=== PATIENT | female | born 1970 | race Caucasian/White ===

== ENCOUNTER 2017-11-13 17:48 | Inpatient (IN) | payer MEDICAID ==
[~2017-11-13] VITALS: Ht 162.6 cm; Wt 52.2 kg
[2017-11-13] MEDS ORDERED: acetaminophen 325mg tablet PO ONE (18:05)
[2017-11-13 18:42] LABS: BASOPHILS % (AUTO) 0.1 % (0-1); EOSINOPHILS # (AUTO) 0.4 X10'3 (0-0.9); HEMATOCRIT 36.6 % (35.0-45.0); HEMOGLOBIN 12.5 g/dl (12.0-16.0); LYMPHOCYTES # (AUTO) 0.8 X10'3 (1.1-4.8); LYMPHOCYTES % (AUTO) 6.8 % (21-51); MEAN CORPUSCULAR HEMOGLOBIN 29.3 PG (27.0-31.0); MEAN CORPUSCULAR HGB CONC 34.3 % (33.0-36.5); MEAN CORPUSCULAR VOLUME 85.6 FL (78-98); MEAN PLATELET VOLUME 7.5 FL (7.4-10.4); MONOCYTES % (AUTO) 0.2 % (2-12); NEUTROPHILS # (AUTO) 11.2 X10'3 (1.8-7.7); NEUTROPHILS % (AUTO) 89.9 % (42-75); PLATELET COUNT 326 X10'3 (140-440); RED BLOOD COUNT 4.28 X10'6 (4.20-5.60); RED CELL DISTRIBUTION WIDTH 14.3 % (11.5-14.5); WHITE BLOOD COUNT 12.5 X10'3 (4.5-11.0)
[2017-11-13 18:46] LABS: INR 0.9 INR; PARTIAL THROMBOPLASTIN TIME 25 SECONDS (22-32); PROTHROMBIN TIME 9.8 SECONDS (9.0-12.0)
[2017-11-13 20:43] LABS: COLOR,URINE YELLOW (Yellow); GLUCOSE, URINE NEGATIVE (Neg); KETONES,URINE NEGATIVE (Neg); LEUKOCYTE ESTERASE ,URINE NEGATIVE (Neg); NITRITES, URINE NEGATIVE (Neg); OCCULT BLOOD,URINE LARGE (Neg); PH,URINE 5.5 (4.8-8.0); PROTEIN,URINE TRACE mg/dl (Neg)
[2017-11-13 20:51] LABS: BACTERIA,URINE FEW /HPF (Neg); CLARITY,URINE SLIGHTLY CLOUDY (Clear); MUCUS STRANDS MODERATE /LPF (Neg); SQUAMOUS EPITHELIAL CELL,UR FEW /LPF (FEW); UA COLLECTION TYPE CLN CATCH MIDSTREAM; WBC,URINE NONE SEEN /HPF (0-4)
[2017-11-13] MEDS ORDERED: temazepam 15mg capsule PO PRN (21:00)
[2017-11-13 21:13] LABS: D-DIMER 1.95 MG/L FEU (0-0.50)
[2017-11-13 21:55] LABS: ALANINE AMINOTRANSFERASE 188 U/L (12-78); ALBUMIN 2.3 G/DL (3.4-5.0); ALBUMIN/GLOBULIN RATIO 0.6 (1.1-1.5); ALKALINE PHOSPHATASE 62 IU/L (46-116); ANION GAP 8 (8-16); ASPARTATE AMINO TRANSFERASE 219 U/L (10-37); BILIRUBIN,TOTAL 0.3 MG/DL (0.1-1.0); BLOOD UREA NITROGEN 20 MG/DL (7-18); CALCIUM 7.6 MG/DL (8.5-10.1); CHLORIDE 98 MMOL/L (99-107); GLUCOSE 132 MG/DL (70-104); SODIUM 133 MMOL/L (135-145); TOTAL CARBON DIOXIDE 27.4 MMOL/L (24-32); TOTAL PROTEIN 6.2 G/DL (6.4-8.2); eGFR 77 ML/MIN
[2017-11-13] MEDS ORDERED: heparin 10,000 units/1 ML INJ IV ONE (22:15)
[2017-11-13] MEDS ORDERED: aspirin 81mg tab.chew PO ONE (22:15)
[2017-11-13] MEDS ORDERED: iohexol 350MG/ML 100ml bottle IV ONE (22:23)
[2017-11-13 22:31] LABS: MAGNESIUM 1.8 MG/DL (1.5-2.4)
[2017-11-13] MEDS ORDERED: NO HOME MEDS (22:52)
[2017-11-13] MEDS ORDERED: acetaminophen 325mg tablet PO PRN ×2 (23:05)
[2017-11-13] MEDS ORDERED: enoxaparin 100mg/ml syringe SUBCUT ONE (23:05)
[2017-11-13] MEDS ORDERED: magnesium hydroxide 30ml (MOM) UD suspension PO PRN (23:05)
[2017-11-13] MEDS ORDERED: ondansetron/PF 4mg/2ml inj IV PRN (23:05)
[2017-11-13] MEDS ORDERED: mag hydrox/Alum hydrox/simeth 30ml oral suspension PO PRN (23:05)
[2017-11-14 03:00] VITALS: BP 95/58
[2017-11-14 05:45] LABS: BASOPHILS % (AUTO) 0.1 % (0-1); EOSINOPHILS # (AUTO) 0.3 X10'3 (0-0.9); EOSINOPHILS % (AUTO) 2.9 % (0-6); HEMATOCRIT 34.5 % (35.0-45.0); HEMOGLOBIN 11.8 g/dl (12.0-16.0); LYMPHOCYTES # (AUTO) 0.7 X10'3 (1.1-4.8); LYMPHOCYTES % (AUTO) 5.8 % (21-51); MEAN CORPUSCULAR HGB CONC 34.1 % (33.0-36.5); MEAN CORPUSCULAR VOLUME 85.1 FL (78-98); MEAN PLATELET VOLUME 7.5 FL (7.4-10.4); MONOCYTES % (AUTO) 0.1 % (2-12); NEUTROPHILS # (AUTO) 10.9 X10'3 (1.8-7.7); NEUTROPHILS % (AUTO) 91.1 % (42-75); PLATELET COUNT 300 X10'3 (140-440); RED BLOOD COUNT 4.05 X10'6 (4.20-5.60); RED CELL DISTRIBUTION WIDTH 14.6 % (11.5-14.5)
[2017-11-14 06:00] VITALS: BP 114/60
[2017-11-14 06:11] LABS: ALANINE AMINOTRANSFERASE 173 U/L (12-78); ALBUMIN/GLOBULIN RATIO 0.6 (1.1-1.5); ALKALINE PHOSPHATASE 51 IU/L (46-116); ANION GAP 8 (8-16); ASPARTATE AMINO TRANSFERASE 195 U/L (10-37); BILIRUBIN,TOTAL 0.3 MG/DL (0.1-1.0); BLOOD UREA NITROGEN 18 MG/DL (7-18); BUN/CREATININE RATIO 28.6 (6.6-38.0); CALCIUM 7.7 MG/DL (8.5-10.1); CHLORIDE 100 MMOL/L (99-107); CREATININE 0.63 MG/DL (0.40-0.90); GLUCOSE 121 MG/DL (70-104); POTASSIUM 3.7 MMOL/L (3.5-5.1); SODIUM 135 MMOL/L (135-145); TOTAL CARBON DIOXIDE 26.9 MMOL/L (24-32); TOTAL PROTEIN 5.6 G/DL (6.4-8.2); eGFR > 90 ML/MIN
[2017-11-14 06:15] LABS: CHOL/HDL RATIO 6.2 (0.00-4.99); CHOLESTEROL 162 MG/DL (0-200); HDL CHOLESTEROL 26 MG/DL (35-60); LDL CHOLESTEROL 110 MG/DL (50-100); TRIGLYCERIDES 196 MG/DL (20-135)
[2017-11-14 06:28] LABS: TROPONIN I 0.75 NG/ML (0.0-0.05)
[2017-11-14] MEDS: heparin 10,000 units/1 ML INJ IV PRN ×3 (06:48→19:46)
[2017-11-14] MEDS: aspirin 81mg tablet.DR PO SCH (08:47)
[2017-11-14 11:00] VITALS: BP 100/57
[2017-11-14 13:05] LABS: URINE AMPHETAMINE SCREEN POSITIVE (Neg); URINE BARBITUATE SCREEN NEGATIVE (Neg); URINE BENZODIAZEPINES SCREEN NEGATIVE (Neg); URINE CANNABINOID SCREEN POSITIVE (Neg); URINE COCAINE SCREEN NEGATIVE (Neg); URINE METHADONE SCREEN NEGATIVE (Neg); URINE OPIATE SCREEN NEGATIVE (Neg); URINE PHENCYCLIDINE SCREEN NEGATIVE (Neg)
[2017-11-14 15:00] VITALS: BP 94/52
[2017-11-14 19:00] VITALS: BP 119/63
[2017-11-14 23:00] VITALS: BP 104/56
[2017-11-15 03:00] VITALS: BP 97/61
[2017-11-15 05:29] LABS: BASOPHILS % (AUTO) 0.1 % (0-1); EOSINOPHILS # (AUTO) 0.4 X10'3 (0-0.9); HEMATOCRIT 33.2 % (35.0-45.0); HEMOGLOBIN 11.1 g/dl (12.0-16.0); LYMPHOCYTES # (AUTO) 0.8 X10'3 (1.1-4.8); LYMPHOCYTES % (AUTO) 7.1 % (21-51); MEAN CORPUSCULAR HGB CONC 33.6 % (33.0-36.5); MEAN CORPUSCULAR VOLUME 86.1 FL (78-98); MEAN PLATELET VOLUME 7.8 FL (7.4-10.4); MONOCYTES % (AUTO) 0.1 % (2-12); NEUTROPHILS # (AUTO) 9.7 X10'3 (1.8-7.7); NEUTROPHILS % (AUTO) 88.7 % (42-75); PLATELET COUNT 280 X10'3 (140-440); RED BLOOD COUNT 3.85 X10'6 (4.20-5.60); RED CELL DISTRIBUTION WIDTH 14.6 % (11.5-14.5); WHITE BLOOD COUNT 10.9 X10'3 (4.5-11.0)
[2017-11-15 06:00] VITALS: BP 95/49
[2017-11-15 06:17] LABS: ALANINE AMINOTRANSFERASE 162 U/L (12-78); ALBUMIN 1.8 G/DL (3.4-5.0); ALBUMIN/GLOBULIN RATIO 0.5 (1.1-1.5); ALKALINE PHOSPHATASE 50 IU/L (46-116); ANION GAP 9 (8-16); ASPARTATE AMINO TRANSFERASE 168 U/L (10-37); BILIRUBIN,TOTAL 0.3 MG/DL (0.1-1.0); BLOOD UREA NITROGEN 15 MG/DL (7-18); BUN/CREATININE RATIO 25.9 (6.6-38.0); CALCIUM 7.8 MG/DL (8.5-10.1); CHLORIDE 101 MMOL/L (99-107); CREATININE 0.58 MG/DL (0.40-0.90); GLUCOSE 97 MG/DL (70-104); POTASSIUM 3.9 MMOL/L (3.5-5.1); SODIUM 136 MMOL/L (135-145); TOTAL CARBON DIOXIDE 25.8 MMOL/L (24-32); TOTAL PROTEIN 5.3 G/DL (6.4-8.2); eGFR > 90 ML/MIN
[2017-11-15] MEDS: aspirin 81mg tablet.DR PO SCH (08:00)
[2017-11-15 13:43] LABS: HBSAG SCREEN Negative (Negative); HEP A AB, IGM Negative (Negative); HEPATITIS C ANTIBODY <0.1 s/co ratio (0.0-0.9)
== END 2017-11-15 08:35 | disposition left against medical advice (07) | DRG 198 ==
LOC: ER 17:50 → ED HOLD 23:01 → PCU 3S 11-14 02:41
PROVIDERS: ADMIT Hospitalist; ATTEND Family Medicine
PROC: B32T1ZZ Computerized Tomography (CT Scan) of Left Pulmonary Artery using Low Osmolar Contrast (ICD-10-PCS; principal; 2017-11-13)
PROC: B3201ZZ Computerized Tomography (CT Scan) of Thoracic Aorta using Low Osmolar Contrast (ICD-10-PCS; 2017-11-13)
PROC: B32S1ZZ Computerized Tomography (CT Scan) of Right Pulmonary Artery using Low Osmolar Contrast (ICD-10-PCS; 2017-11-13)
DX: I24.9 Acute ischemic heart disease, unspecified (principal); I50.9 Heart failure, unspecified; E46 Unspecified protein-calorie malnutrition; E87.1 Hypo-osmolality and hyponatremia; F15.10 Other stimulant abuse, uncomplicated; I25.10 Atherosclerotic heart disease of native coronary artery without angina pectoris; R91.1 Solitary pulmonary nodule; F17.210 Nicotine dependence, cigarettes, uncomplicated; R74.0 Nonspecific elevation of levels of transaminase and lactic acid dehydrogenase [LDH]; Z68.1 Body mass index [BMI] 19.9 or less, adult; Z79.82 Long term (current) use of aspirin
CPT/HCPCS: 36415; 71045; 71275; 80053; 80061; 80305; 81001; 83605; 83735; 83880; 84484; 85025; 85379; 85610; 85730; 86706; 86709; 86803; 87040; 87070; 87340; 93306; 93970; 96374; 99291; A4353; J1644; J7030; Q9967

== ENCOUNTER 2017-12-09 12:09 | Inpatient (IN) | payer MEDICAID ==
[~2017-12-09] VITALS: Ht 162.6 cm; Wt 56.1 kg
[~2017-12-09 12:09] MED LIST: NO HOME MEDS
[2017-12-09 14:51] LABS: BASOPHILS % (AUTO) 0.1 % (0-1); EOSINOPHILS # (AUTO) 0.2 X10'3 (0-0.9); EOSINOPHILS % (AUTO) 1.1 % (0-6); HEMATOCRIT 32.6 % (35.0-45.0); HEMOGLOBIN 11.2 g/dl (12.0-16.0); LYMPHOCYTES # (AUTO) 0.8 X10'3 (1.1-4.8); LYMPHOCYTES % (AUTO) 4.8 % (21-51); MEAN CORPUSCULAR HEMOGLOBIN 29.2 PG (27.0-31.0); MEAN CORPUSCULAR HGB CONC 34.2 % (33.0-36.5); MEAN CORPUSCULAR VOLUME 85.3 FL (78-98); MEAN PLATELET VOLUME 6.5 FL (7.4-10.4); MONOCYTES % (AUTO) 0.3 % (2-12); NEUTROPHILS # (AUTO) 15.2 X10'3 (1.8-7.7); NEUTROPHILS % (AUTO) 93.7 % (42-75); PLATELET COUNT 471 X10'3 (140-440); RED BLOOD COUNT 3.82 X10'6 (4.20-5.60); RED CELL DISTRIBUTION WIDTH 14.7 % (11.5-14.5); WHITE BLOOD COUNT 16.2 X10'3 (4.5-11.0)
[2017-12-09 15:04] LABS: ALANINE AMINOTRANSFERASE 465 U/L (12-78); ALBUMIN 1.5 G/DL (3.4-5.0); ALBUMIN/GLOBULIN RATIO 0.4 (1.1-1.5); ALKALINE PHOSPHATASE 72 IU/L (46-116); ANION GAP 2 (8-16); ASPARTATE AMINO TRANSFERASE 473 U/L (10-37); BILIRUBIN,TOTAL 0.3 MG/DL (0.1-1.0); BLOOD UREA NITROGEN 17 MG/DL (7-18); BUN/CREATININE RATIO 27.4 (6.6-38.0); CALCIUM 7.7 MG/DL (8.5-10.1); CHLORIDE 97 MMOL/L (99-107); CREATININE 0.62 MG/DL (0.40-0.90); POTASSIUM 4.1 MMOL/L (3.5-5.1); SODIUM 129 MMOL/L (135-145); TOTAL CARBON DIOXIDE 30.3 MMOL/L (24-32); TOTAL PROTEIN 5.6 G/DL (6.4-8.2); eGFR > 90 ML/MIN
[2017-12-09 15:10] LABS: GLUCOSE 95 MG/DL (70-104)
[2017-12-09] MEDS ORDERED: enoxaparin 100mg/ml syringe SUBCUT ONE (15:15)
[2017-12-09 15:45] LABS: CLARITY,URINE CLEAR (Clear); COLOR,URINE YELLOW (Yellow); GLUCOSE, URINE NEGATIVE (Neg); KETONES,URINE NEGATIVE (Neg); LEUKOCYTE ESTERASE ,URINE NEGATIVE (Neg); NITRITES, URINE NEGATIVE (Neg); OCCULT BLOOD,URINE LARGE (Neg); PH,URINE 5.5 (4.8-8.0); PROTEIN,URINE TRACE mg/dl (Neg); URINE AMPHETAMINE SCREEN NEGATIVE (Neg); URINE BARBITUATE SCREEN NEGATIVE (Neg); URINE BENZODIAZEPINES SCREEN NEGATIVE (Neg); URINE CANNABINOID SCREEN POSITIVE (Neg); URINE COCAINE SCREEN NEGATIVE (Neg); URINE METHADONE SCREEN NEGATIVE (Neg); URINE OPIATE SCREEN NEGATIVE (Neg); URINE PHENCYCLIDINE SCREEN NEGATIVE (Neg); UROBILINOGEN,URINE 0.2 E.U/dL (0.2-1.0)
[2017-12-09 15:59] LABS: UA COLLECTION TYPE VOIDED
[2017-12-09 16:00] LABS: RBC,URINE 0-2 /HPF (0-2); WBC,URINE 0-4 /HPF (0-4)
[2017-12-09 16:01] LABS: AMORPHOUS URATES 1+; BACTERIA,URINE FEW /HPF (Neg); MUCUS STRANDS MANY /LPF (Neg); SQUAMOUS EPITHELIAL CELL,UR FEW /LPF (FEW)
[2017-12-09] MEDS ORDERED: magnesium 1gm/100ml D5W IVPB 100 ML IV PRN (16:10)
[2017-12-09] MEDS ORDERED: magnesium Cl slow-release 64mg tablet PO PRN (16:10)
[2017-12-09] MEDS ORDERED: ondansetron/PF 4mg/2ml inj IV PRN (16:10)
[2017-12-09] MEDS ORDERED: magnesium 4gm in 100ml NS 100 ML IV PRN (16:10)
[2017-12-09] MEDS ORDERED: potassium Cl 40MEQ/NS 500ml 500 ML IV PRN ×2 (16:10)
[2017-12-09] MEDS ORDERED: magnesium hydroxide 30ml (MOM) UD suspension PO PRN (16:10)
[2017-12-09] MEDS ORDERED: mag hydrox/Alum hydrox/simeth 30ml oral suspension PO PRN (16:10)
[2017-12-09] MEDS ORDERED: potassium Cl 20 mEq SR tablet PO PRN ×2 (16:10)
[2017-12-09] MEDS ORDERED: bisacodyl 10mg suppository rectal RC PRN (16:10)
[2017-12-09 16:14] LABS: ETHANOL < 0.010 GM/DL (0.0-0.010)
[2017-12-09] MEDS ORDERED: nitroGLYCERIN 0.4mg SUBLingual tab SL PRN (16:15)
[2017-12-09] MEDS: metoprolol tartrate 12.5mg (1/2 tablet) PO SCH ×2 (16:42→20:15)
[2017-12-09] MEDS: aspirin 325mg tablet, delayed-release (Ecotrin) PO SCH (16:42)
[2017-12-09 19:30] VITALS: BP 96/61
[2017-12-09] MEDS: LACTOSE-FREE FOOD 237ML (BOOST) PO SCH (20:00)
[2017-12-09] MEDS: furosemide 20 MG/2 ML vial IV SCH (20:12)
[2017-12-09] MEDS: morphine 4 MG/ML inj SYRINge IV PRN (20:14)
[2017-12-09] MEDS: docusate sod 100mg capsule PO SCH (20:15)
[2017-12-09 23:00] VITALS: BP 86/49
[2017-12-10 02:59] LABS: BASOPHILS # (AUTO) 0.2 X10'3 (0-0.2); BASOPHILS % (AUTO) 1.3 % (0-1); EOSINOPHILS # (AUTO) 0.3 X10'3 (0-0.9); EOSINOPHILS % (AUTO) 2.4 % (0-6); HEMATOCRIT 29.3 % (35.0-45.0); LYMPHOCYTES # (AUTO) 0.9 X10'3 (1.1-4.8); LYMPHOCYTES % (AUTO) 6.9 % (21-51); MEAN CORPUSCULAR HGB CONC 34.1 % (33.0-36.5); MEAN CORPUSCULAR VOLUME 84.9 FL (78-98); MEAN PLATELET VOLUME 6.4 FL (7.4-10.4); MONOCYTES # (AUTO) 0.1 X10'3 (0-0.9); MONOCYTES % (AUTO) 0.7 % (2-12); NEUTROPHILS # (AUTO) 12.2 X10'3 (1.8-7.7); NEUTROPHILS % (AUTO) 88.7 % (42-75); PLATELET COUNT 411 X10'3 (140-440); RED BLOOD COUNT 3.46 X10'6 (4.20-5.60); RED CELL DISTRIBUTION WIDTH 14.4 % (11.5-14.5); WHITE BLOOD COUNT 13.8 X10'3 (4.5-11.0)
[2017-12-10 03:14] LABS: ALANINE AMINOTRANSFERASE 395 U/L (12-78); ALBUMIN 1.3 G/DL (3.4-5.0); ALBUMIN/GLOBULIN RATIO 0.3 (1.1-1.5); ALKALINE PHOSPHATASE 61 IU/L (46-116); ANION GAP 2 (8-16); ASPARTATE AMINO TRANSFERASE 395 U/L (10-37); BILIRUBIN,TOTAL 0.3 MG/DL (0.1-1.0); BLOOD UREA NITROGEN 18 MG/DL (7-18); BUN/CREATININE RATIO 32.1 (6.6-38.0); CALCIUM 7.4 MG/DL (8.5-10.1); CHLORIDE 99 MMOL/L (99-107); CREATININE 0.56 MG/DL (0.40-0.90); SODIUM 132 MMOL/L (135-145); TOTAL CARBON DIOXIDE 30.9 MMOL/L (24-32); TOTAL PROTEIN 5.1 G/DL (6.4-8.2); eGFR > 90 ML/MIN
[2017-12-10 03:17] LABS: CHOL/HDL RATIO 9.8 (0.00-4.99); CHOLESTEROL 127 MG/DL (0-200); HDL CHOLESTEROL 13 MG/DL (35-60); LDL CHOLESTEROL 79 MG/DL (50-100); MAGNESIUM 1.5 MG/DL (1.5-2.4); PLATELET ESTIMATE NORMAL; TOTAL CELLS COUNTED 100; TRIGLYCERIDES 256 MG/DL (20-135)
[2017-12-10 03:21] LABS: GLUCOSE 87 MG/DL (70-104)
[2017-12-10] MEDS: enoxaparin 50mg/0.5ml (from 3ml vial) syringe SUBCUT SCH ×3 (04:00→20:24)
[2017-12-10] MEDS ORDERED: enoxaparin 60mg/0.6ml syringe SUBCUT ONE (05:00)
[2017-12-10 06:00] VITALS: BP 86/49
[2017-12-10] MEDS: K and/or MAG REPLACEMENT MC SCH (07:47)
[2017-12-10] MEDS: docusate sod 100mg capsule PO SCH ×2 (07:56→20:24)
[2017-12-10] MEDS: aspirin 325mg tablet, delayed-release (Ecotrin) PO SCH (07:56)
[2017-12-10] MEDS: furosemide 20 MG/2 ML vial IV SCH ×2 (08:00→20:24)
[2017-12-10] MEDS: LACTOSE-FREE FOOD 237ML (BOOST) PO SCH ×3 (08:01→18:01)
[2017-12-10] MEDS: metoprolol tartrate 12.5mg (1/2 tablet) PO SCH ×2 (09:59→20:24)
[2017-12-10 11:00] VITALS: BP 93/54
[2017-12-10 15:00] VITALS: BP 86/45
[2017-12-10] MEDS: morphine 4 MG/ML inj SYRINge IV PRN (16:52)
[2017-12-10 19:00] VITALS: BP 101/52
[2017-12-10 23:00] VITALS: BP 103/51
[2017-12-11] MEDS: morphine 4 MG/ML inj SYRINge IV PRN ×4 (01:17→23:56)
[2017-12-11 03:11] VITALS: BP 98/50
[2017-12-11 05:20] LABS: BASOPHILS % (AUTO) 0 % (0-1); EOSINOPHILS # (AUTO) 0.3 X10'3 (0-0.9); EOSINOPHILS % (AUTO) 2.3 % (0-6); HEMATOCRIT 31.9 % (35.0-45.0); HEMOGLOBIN 10.6 g/dl (12.0-16.0); LYMPHOCYTES # (AUTO) 0.9 X10'3 (1.1-4.8); LYMPHOCYTES % (AUTO) 7.1 % (21-51); MEAN CORPUSCULAR HEMOGLOBIN 28.7 PG (27.0-31.0); MEAN CORPUSCULAR HGB CONC 33.1 % (33.0-36.5); MEAN CORPUSCULAR VOLUME 86.5 FL (78-98); MEAN PLATELET VOLUME 7.3 FL (7.4-10.4); MONOCYTES % (AUTO) 0.1 % (2-12); NEUTROPHILS # (AUTO) 10.9 X10'3 (1.8-7.7); NEUTROPHILS % (AUTO) 90.5 % (42-75); PLATELET COUNT 420 X10'3 (140-440); RED BLOOD COUNT 3.69 X10'6 (4.20-5.60)
[2017-12-11 05:45] LABS: ALANINE AMINOTRANSFERASE 378 U/L (12-78); ALBUMIN 1.3 G/DL (3.4-5.0); ALBUMIN/GLOBULIN RATIO 0.3 (1.1-1.5); ALKALINE PHOSPHATASE 56 IU/L (46-116); ANION GAP 6 (8-16); ASPARTATE AMINO TRANSFERASE 365 U/L (10-37); BILIRUBIN,TOTAL 0.2 MG/DL (0.1-1.0); BLOOD UREA NITROGEN 23 MG/DL (7-18); BUN/CREATININE RATIO 45.1 (6.6-38.0); CALCIUM 7.6 MG/DL (8.5-10.1); CHLORIDE 98 MMOL/L (99-107); CREATININE 0.51 MG/DL (0.40-0.90); GLUCOSE 93 MG/DL (70-104); MAGNESIUM 1.5 MG/DL (1.5-2.4); POTASSIUM 4.1 MMOL/L (3.5-5.1); SODIUM 131 MMOL/L (135-145); TOTAL CARBON DIOXIDE 27.4 MMOL/L (24-32); TOTAL PROTEIN 5.1 G/DL (6.4-8.2); eGFR > 90 ML/MIN
[2017-12-11 06:00] VITALS: BP 88/46
[2017-12-11] MEDS: K and/or MAG REPLACEMENT MC SCH (08:00)
[2017-12-11] MEDS: docusate sod 100mg capsule PO SCH ×2 (08:01→19:42)
[2017-12-11] MEDS: aspirin 325mg tablet, delayed-release (Ecotrin) PO SCH (08:02)
[2017-12-11] MEDS: metoprolol tartrate 12.5mg (1/2 tablet) PO SCH ×2 (08:02→19:41)
[2017-12-11] MEDS: enoxaparin 50mg/0.5ml (from 3ml vial) syringe SUBCUT SCH ×2 (08:04→20:00)
[2017-12-11] MEDS: LACTOSE-FREE FOOD 237ML (BOOST) PO SCH (08:07)
[2017-12-11 11:00] VITALS: BP 89/52
[2017-12-11 15:00] VITALS: BP 91/56
[2017-12-11 19:00] VITALS: BP 99/53
[2017-12-11] MEDS: furosemide 20MG tablet PO SCH (19:42)
[2017-12-11 23:00] VITALS: BP 98/54
[2017-12-12 03:06] VITALS: BP 134/68
[2017-12-12 05:40] LABS: BASOPHILS % (AUTO) 0.1 % (0-1); EOSINOPHILS # (AUTO) 0.3 X10'3 (0-0.9); EOSINOPHILS % (AUTO) 2.2 % (0-6); HEMATOCRIT 30.9 % (35.0-45.0); HEMOGLOBIN 10.5 g/dl (12.0-16.0); LYMPHOCYTES # (AUTO) 0.8 X10'3 (1.1-4.8); MEAN CORPUSCULAR HGB CONC 34.1 % (33.0-36.5); MEAN CORPUSCULAR VOLUME 85.2 FL (78-98); MEAN PLATELET VOLUME 7.2 FL (7.4-10.4); MONOCYTES # (AUTO) 0.1 X10'3 (0-0.9); MONOCYTES % (AUTO) 0.6 % (2-12); NEUTROPHILS % (AUTO) 91.1 % (42-75); PLATELET COUNT 414 X10'3 (140-440); RED BLOOD COUNT 3.63 X10'6 (4.20-5.60); RED CELL DISTRIBUTION WIDTH 14.9 % (11.5-14.5); WHITE BLOOD COUNT 13.1 X10'3 (4.5-11.0)
[2017-12-12 06:00] VITALS: BP 94/59
[2017-12-12 06:17] LABS: ALANINE AMINOTRANSFERASE 374 U/L (12-78); ALBUMIN 1.3 G/DL (3.4-5.0); ALBUMIN/GLOBULIN RATIO 0.3 (1.1-1.5); ALKALINE PHOSPHATASE 62 IU/L (46-116); ANION GAP 5 (8-16); ASPARTATE AMINO TRANSFERASE 389 U/L (10-37); BILIRUBIN,TOTAL 0.2 MG/DL (0.1-1.0); BLOOD UREA NITROGEN 21 MG/DL (7-18); BUN/CREATININE RATIO 37.5 (6.6-38.0); CALCIUM 7.5 MG/DL (8.5-10.1); CHLORIDE 97 MMOL/L (99-107); CREATININE 0.56 MG/DL (0.40-0.90); MAGNESIUM 1.4 MG/DL (1.5-2.4); POTASSIUM 4.3 MMOL/L (3.5-5.1); SODIUM 131 MMOL/L (135-145); TOTAL CARBON DIOXIDE 28.6 MMOL/L (24-32); TOTAL PROTEIN 5.3 G/DL (6.4-8.2); eGFR > 90 ML/MIN
[2017-12-12 06:27] LABS: GLUCOSE 101 MG/DL (70-104)
[2017-12-12] MEDS: docusate sod 100mg capsule PO SCH ×2 (07:36→19:46)
[2017-12-12] MEDS: aspirin 81mg tablet.DR PO SCH (07:36)
[2017-12-12] MEDS: enoxaparin 50mg/0.5ml (from 3ml vial) syringe SUBCUT SCH ×2 (07:37→19:47)
[2017-12-12] MEDS: furosemide 20MG tablet PO SCH ×2 (07:42→17:48)
[2017-12-12] MEDS: metoprolol tartrate 12.5mg (1/2 tablet) PO SCH ×3 (07:42→19:46)
[2017-12-12] MEDS: K and/or MAG REPLACEMENT MC SCH (08:00)
[2017-12-12] MEDS ORDERED: aspirin 325mg tablet, delayed-release (Ecotrin) PO SCH (08:00)
[2017-12-12] MEDS: LACTOSE-FREE FOOD 237ML (BOOST) PO SCH ×4 (08:00→18:00)
[2017-12-12 10:23] VITALS: BP 121/65
[2017-12-12] MEDS ORDERED: magnesium 4gm in 100ml NS 100 ML IV ONE (10:35)
[2017-12-12 11:00] VITALS: BP 96/57
[2017-12-12] MEDS ORDERED: furosemide 20MG tablet PO SCH ×3 (14:00→21:00)
[2017-12-12] MEDS: HYDROcodone/acetaminophen 5mg/325mg tablet PO PRN (14:00)
[2017-12-12 19:00] VITALS: BP 100/68
[2017-12-12] MEDS: magnesium Cl slow-release 64mg tablet PO SCH (19:46)
[2017-12-12 23:00] VITALS: BP 101/52
[2017-12-12] MEDS: morphine 4 MG/ML inj SYRINge IV PRN (23:08)
[2017-12-13 03:00] VITALS: BP 104/60
[2017-12-13 05:20] LABS: BASOPHILS % (AUTO) 0.1 % (0-1); EOSINOPHILS # (AUTO) 0.3 X10'3 (0-0.9); EOSINOPHILS % (AUTO) 2.4 % (0-6); HEMATOCRIT 30.7 % (35.0-45.0); HEMOGLOBIN 10.5 g/dl (12.0-16.0); LYMPHOCYTES # (AUTO) 0.7 X10'3 (1.1-4.8); LYMPHOCYTES % (AUTO) 5.8 % (21-51); MEAN CORPUSCULAR HEMOGLOBIN 29.1 PG (27.0-31.0); MEAN CORPUSCULAR HGB CONC 34.3 % (33.0-36.5); MEAN CORPUSCULAR VOLUME 84.8 FL (78-98); MEAN PLATELET VOLUME 7.2 FL (7.4-10.4); MONOCYTES % (AUTO) 0.3 % (2-12); NEUTROPHILS # (AUTO) 11.1 X10'3 (1.8-7.7); NEUTROPHILS % (AUTO) 91.4 % (42-75); PLATELET COUNT 382 X10'3 (140-440); RED BLOOD COUNT 3.61 X10'6 (4.20-5.60); WHITE BLOOD COUNT 12.2 X10'3 (4.5-11.0)
[2017-12-13 05:55] LABS: ALANINE AMINOTRANSFERASE 370 U/L (12-78); ALBUMIN 1.3 G/DL (3.4-5.0); ALBUMIN/GLOBULIN RATIO 0.3 (1.1-1.5); ALKALINE PHOSPHATASE 72 IU/L (46-116); ANION GAP 3 (8-16); ASPARTATE AMINO TRANSFERASE 354 U/L (10-37); BILIRUBIN,TOTAL 0.2 MG/DL (0.1-1.0); BLOOD UREA NITROGEN 19 MG/DL (7-18); BUN/CREATININE RATIO 35.2 (6.6-38.0); CALCIUM 7.6 MG/DL (8.5-10.1); CHLORIDE 96 MMOL/L (99-107); CREATININE 0.54 MG/DL (0.40-0.90); GLUCOSE 109 MG/DL (70-104); MAGNESIUM 1.9 MG/DL (1.5-2.4); POTASSIUM 4.5 MMOL/L (3.5-5.1); SODIUM 128 MMOL/L (135-145); TOTAL CARBON DIOXIDE 29.3 MMOL/L (24-32); TOTAL PROTEIN 5.3 G/DL (6.4-8.2); eGFR > 90 ML/MIN
[2017-12-13 06:00] VITALS: BP 96/46
[2017-12-13] MEDS: LACTOSE-FREE FOOD 237ML (BOOST) PO SCH ×3 (08:00→18:00)
[2017-12-13] MEDS: K and/or MAG REPLACEMENT MC SCH (08:00)
[2017-12-13] MEDS: aspirin 81mg tablet.DR PO SCH (08:06)
[2017-12-13] MEDS: docusate sod 100mg capsule PO SCH ×2 (08:06→20:05)
[2017-12-13] MEDS: metoprolol tartrate 12.5mg (1/2 tablet) PO SCH ×2 (08:07→20:00)
[2017-12-13] MEDS: magnesium Cl slow-release 64mg tablet PO SCH ×2 (08:07→20:05)
[2017-12-13] MEDS: enoxaparin 50mg/0.5ml (from 3ml vial) syringe SUBCUT SCH ×2 (08:08→20:05)
[2017-12-13 11:00] VITALS: BP_SYST 104; BP_SYST 97; BP_DIAS 52; BP_DIAS 57
[2017-12-13] MEDS: CefTRIAXone/D5W-Rocephin 1gm 50 ML IV SCH (14:52)
[2017-12-13] MEDS: HYDROcodone/acetaminophen 5mg/325mg tablet PO PRN (15:38)
[2017-12-13] MEDS: furosemide 20MG tablet PO SCH (15:38)
[2017-12-13 19:00] VITALS: BP 96/53
[2017-12-13] MEDS: Melatonin 3mg tablet PO SCH (20:14)
[2017-12-13 23:00] VITALS: BP 105/55
[2017-12-14 03:00] VITALS: BP 92/54
[2017-12-14] MEDS: HYDROcodone/acetaminophen 5mg/325mg tablet PO PRN (03:20)
[2017-12-14 05:36] LABS: BASOPHILS % (AUTO) 0 % (0-1); EOSINOPHILS # (AUTO) 0.2 X10'3 (0-0.9); EOSINOPHILS % (AUTO) 1.7 % (0-6); HEMATOCRIT 30.1 % (35.0-45.0); HEMOGLOBIN 10.1 g/dl (12.0-16.0); LYMPHOCYTES # (AUTO) 0.6 X10'3 (1.1-4.8); LYMPHOCYTES % (AUTO) 5.1 % (21-51); MEAN CORPUSCULAR HEMOGLOBIN 28.7 PG (27.0-31.0); MEAN CORPUSCULAR HGB CONC 33.6 % (33.0-36.5); MEAN CORPUSCULAR VOLUME 85.2 FL (78-98); MEAN PLATELET VOLUME 7.1 FL (7.4-10.4); MONOCYTES % (AUTO) 0.3 % (2-12); NEUTROPHILS # (AUTO) 10.8 X10'3 (1.8-7.7); NEUTROPHILS % (AUTO) 92.9 % (42-75); PLATELET COUNT 371 X10'3 (140-440); RED BLOOD COUNT 3.53 X10'6 (4.20-5.60); WHITE BLOOD COUNT 11.6 X10'3 (4.5-11.0)
[2017-12-14 05:51] LABS: ALANINE AMINOTRANSFERASE 346 U/L (12-78); ALBUMIN 1.3 G/DL (3.4-5.0); ALBUMIN/GLOBULIN RATIO 0.3 (1.1-1.5); ALKALINE PHOSPHATASE 88 IU/L (46-116); ANION GAP 4 (8-16); ASPARTATE AMINO TRANSFERASE 346 U/L (10-37); BILIRUBIN,TOTAL 0.2 MG/DL (0.1-1.0); BLOOD UREA NITROGEN 19 MG/DL (7-18); BUN/CREATININE RATIO 41.3 (6.6-38.0); CALCIUM 7.5 MG/DL (8.5-10.1); CHLORIDE 98 MMOL/L (99-107); CREATININE 0.46 MG/DL (0.40-0.90); MAGNESIUM 1.6 MG/DL (1.5-2.4); POTASSIUM 4.6 MMOL/L (3.5-5.1); SODIUM 131 MMOL/L (135-145); TOTAL CARBON DIOXIDE 29.2 MMOL/L (24-32); TOTAL PROTEIN 5.3 G/DL (6.4-8.2); eGFR > 90 ML/MIN
[2017-12-14 05:52] LABS: GLUCOSE 98 MG/DL (70-104)
[2017-12-14 07:00] VITALS: BP 90/52
[2017-12-14] MEDS: magnesium Cl slow-release 64mg tablet PO SCH ×2 (07:55→20:53)
[2017-12-14] MEDS: docusate sod 100mg capsule PO SCH ×2 (07:55→20:53)
[2017-12-14] MEDS: aspirin 81mg tablet.DR PO SCH (07:55)
[2017-12-14] MEDS: CefTRIAXone/D5W-Rocephin 1gm 50 ML IV SCH (07:56)
[2017-12-14] MEDS: metoprolol tartrate 12.5mg (1/2 tablet) PO SCH ×2 (08:00→20:00)
[2017-12-14] MEDS: enoxaparin 50mg/0.5ml (from 3ml vial) syringe SUBCUT SCH ×2 (08:23→20:59)
[2017-12-14] MEDS: K and/or MAG REPLACEMENT MC SCH (08:53)
[2017-12-14] MEDS: LACTOSE-FREE FOOD 237ML (BOOST) PO SCH ×3 (08:53→18:00)
[2017-12-14 11:00] VITALS: BP 102/61
[2017-12-14 15:00] VITALS: BP 97/69
[2017-12-14] MEDS: furosemide 20MG tablet PO SCH ×2 (16:00→16:03)
[2017-12-14] MEDS: acetaminophen 325mg tablet PO PRN ×2 (16:03→23:56)
[2017-12-14] MEDS: lactobacillus rhamnosus 10,000 MMU CELLS/CAPSULE PO SCH (20:53)
[2017-12-14] MEDS: Melatonin 3mg tablet PO SCH (20:53)
[2017-12-14 23:00] VITALS: BP 87/50
[2017-12-15 03:00] VITALS: BP 94/55
[2017-12-15 06:00] VITALS: BP 87/53
[2017-12-15] MEDS: K and/or MAG REPLACEMENT MC SCH (08:00)
[2017-12-15] MEDS: LACTOSE-FREE FOOD 237ML (BOOST) PO SCH ×2 (08:00→13:00)
[2017-12-15] MEDS: metoprolol tartrate 12.5mg (1/2 tablet) PO SCH (08:00)
[2017-12-15] MEDS: lactobacillus rhamnosus 10,000 MMU CELLS/CAPSULE PO SCH (08:18)
[2017-12-15] MEDS: CefTRIAXone/D5W-Rocephin 1gm 50 ML IV SCH (08:18)
[2017-12-15] MEDS: docusate sod 100mg capsule PO SCH (08:18)
[2017-12-15] MEDS: aspirin 81mg tablet.DR PO SCH (08:18)
[2017-12-15] MEDS: enoxaparin 50mg/0.5ml (from 3ml vial) syringe SUBCUT SCH (08:19)
[2017-12-15] MEDS: magnesium Cl slow-release 64mg tablet PO SCH (08:22)
[2017-12-15] MEDS: HYDROcodone/acetaminophen 5mg/325mg tablet PO PRN (08:32)
[2017-12-15 11:00] VITALS: BP 95/62
[2017-12-15] MEDS ORDERED: MELA3TAB PO (11:06)
[2017-12-15] MEDS ORDERED: ATOR10TA PO (11:06)
[2017-12-15] MEDS ORDERED: FURO20TA4 PO (11:06)
[2017-12-15] MEDS ORDERED: ASPI-1071 PO (11:06)
[2017-12-15] MEDS ORDERED: METO25TA6 PO (11:06)
[2017-12-15] MEDS ORDERED: AMOX-422 PO (11:06)
== END 2017-12-15 14:15 | disposition home or self-care (01) | DRG 190 ==
LOC: ER 12:10 → ED HOLD 15:43 → PCU 3S 19:29
PROVIDERS: ADMIT Internal Medicine; ATTEND Family Medicine
DX: I21.4 Non-ST elevation (NSTEMI) myocardial infarction (principal); I47.2 Ventricular tachycardia; I50.31 Acute diastolic (congestive) heart failure; E43 Unspecified severe protein-calorie malnutrition; E87.1 Hypo-osmolality and hyponatremia; D64.9 Anemia, unspecified; F12.90 Cannabis use, unspecified, uncomplicated; F15.10 Other stimulant abuse, uncomplicated; F17.200 Nicotine dependence, unspecified, uncomplicated; R74.0 Nonspecific elevation of levels of transaminase and lactic acid dehydrogenase [LDH]; Z68.21 Body mass index [BMI] 21.0-21.9, adult; Z71.51 Drug abuse counseling and surveillance of drug abuser
CPT/HCPCS: 36415; 70551; 71045; 76700; 80053; 80061; 80305; 80320; 81001; 83735; 83880; 84145; 84443; 84484; 85025; 87070; 93005; 93308; 93970; 96372; 97116; 97161; 99285; A6258; J0696; J1650; J1940; J2270; J3475

== ENCOUNTER 2017-12-18 20:45 | Emergency (ER) | payer MEDICAID ==
[~2017-12-18] VITALS: Ht 162.6 cm; Wt 55.0 kg
[~2017-12-18 20:45] MED LIST changes: +AMOX-422 PO; +ASPI-1071 PO; +FURO20TA4 PO; +MELA3TAB PO; +METO25TA6 PO; -NO HOME MEDS
[2017-12-18] MEDS ORDERED: ipratropium/albuterol 3ml nebule NEB ONE (22:00)
[2017-12-18 22:06] LABS: ALANINE AMINOTRANSFERASE 348 U/L (12-78); ALBUMIN 1.5 G/DL (3.4-5.0); ALBUMIN/GLOBULIN RATIO 0.4 (1.1-1.5); ALKALINE PHOSPHATASE 87 IU/L (46-116); ANION GAP 3 (8-16); ASPARTATE AMINO TRANSFERASE 316 U/L (10-37); BILIRUBIN,TOTAL 0.2 MG/DL (0.1-1.0); BLOOD UREA NITROGEN 16 MG/DL (7-18); BUN/CREATININE RATIO 25.8 (6.6-38.0); CALCIUM 7.7 MG/DL (8.5-10.1); CHLORIDE 99 MMOL/L (99-107); CREATININE 0.62 MG/DL (0.40-0.90); POTASSIUM 3.9 MMOL/L (3.5-5.1); SODIUM 132 MMOL/L (135-145); TOTAL PROTEIN 5.7 G/DL (6.4-8.2); eGFR > 90 ML/MIN
[2017-12-18 22:07] LABS: GLUCOSE 95 MG/DL (70-104)
[2017-12-18 22:09] LABS: BASOPHILS % (AUTO) 0.1 % (0-1); EOSINOPHILS # (AUTO) 0.3 X10'3 (0-0.9); EOSINOPHILS % (AUTO) 1.7 % (0-6); HEMATOCRIT 29.8 % (35.0-45.0); LYMPHOCYTES # (AUTO) 1.1 X10'3 (1.1-4.8); LYMPHOCYTES % (AUTO) 6.6 % (21-51); MEAN CORPUSCULAR HEMOGLOBIN 28.5 PG (27.0-31.0); MEAN CORPUSCULAR HGB CONC 33.5 % (33.0-36.5); MEAN CORPUSCULAR VOLUME 85.2 FL (78-98); MEAN PLATELET VOLUME 6.8 FL (7.4-10.4); MONOCYTES % (AUTO) 0.1 % (2-12); NEUTROPHILS % (AUTO) 91.5 % (42-75); PLATELET COUNT 481 X10'3 (140-440); RED CELL DISTRIBUTION WIDTH 15.2 % (11.5-14.5); WHITE BLOOD COUNT 16.4 X10'3 (4.5-11.0)
[2017-12-18 22:15] LABS: MAGNESIUM 1.5 MG/DL (1.5-2.4)
[2017-12-18 22:28] LABS: URINE AMPHETAMINE SCREEN NEGATIVE (Neg); URINE BARBITUATE SCREEN NEGATIVE (Neg); URINE BENZODIAZEPINES SCREEN NEGATIVE (Neg); URINE CANNABINOID SCREEN POSITIVE (Neg); URINE COCAINE SCREEN NEGATIVE (Neg); URINE METHADONE SCREEN NEGATIVE (Neg); URINE OPIATE SCREEN NEGATIVE (Neg); URINE PHENCYCLIDINE SCREEN NEGATIVE (Neg)
[2017-12-18 22:44] LABS: CLARITY,URINE CLEAR (Clear); COLOR,URINE YELLOW (Yellow); GLUCOSE, URINE NEGATIVE (Neg); KETONES,URINE NEGATIVE (Neg); LEUKOCYTE ESTERASE ,URINE NEGATIVE (Neg); NITRITES, URINE NEGATIVE (Neg); OCCULT BLOOD,URINE MODERATE (Neg); PROTEIN,URINE NEGATIVE (Neg); UROBILINOGEN,URINE 0.2 E.U/dL (0.2-1.0)
[2017-12-18 22:55] LABS: UA COLLECTION TYPE FOLEY CATH
[2017-12-18 23:01] LABS: BACTERIA,URINE NONE SEEN /HPF (Neg); HYALINE CASTS 0-3 /LPF (NEGATIVE); MUCUS STRANDS NONE SEEN /LPF (Neg); RBC,URINE 0-2 /HPF (0-2); SQUAMOUS EPITHELIAL CELL,UR FEW /LPF (FEW); WBC,URINE NONE SEEN /HPF (0-4)
[2017-12-19] MEDS ORDERED: NAPR-56 PO (00:34)
[2017-12-19] MEDS ORDERED: normal saline 1000ML IV soln IVB ONE (00:35)
[2017-12-19] MEDS ORDERED: ketorolac tromethamine 15mg/ml inj. IV ONE (00:35)
[2017-12-19] MEDS ORDERED: WALKERFR (00:35)
[2017-12-19 02:08] VITALS: BP 94/55
== END 2017-12-19 02:49 | disposition home or self-care (01) ==
LOC: ER 20:46
DX: E86.0 Dehydration (principal); F12.10 Cannabis abuse, uncomplicated; R60.9 Edema, unspecified; R50.9 Fever, unspecified; I25.10 Atherosclerotic heart disease of native coronary artery without angina pectoris; I50.9 Heart failure, unspecified; I25.2 Old myocardial infarction; F17.200 Nicotine dependence, unspecified, uncomplicated; F15.90 Other stimulant use, unspecified, uncomplicated; Z79.82 Long term (current) use of aspirin; Z79.899 Other long term (current) drug therapy
CPT/HCPCS: 36415; 71045; 80053; 80305; 81001; 83735; 83880; 85025; 93005; 94640; 94760; 96360; 99285; J7030